=== PATIENT | female | born 1985 | race Two or more races ===

== ENCOUNTER 2016-09-09 08:27 | Observation (INO) | payer MEDICAID ==
[~2016-09-09] VITALS: Ht 154.9 cm; Wt 73.9 kg
[~2016-09-09 08:27] MED LIST: XANEX
[2016-09-09] MEDS ORDERED: ONDANSETRON ODT 4 MG TAB PO ONE ×2 (09:00→13:30)
[2016-09-09] MEDS ORDERED: SUMAtriptan SUCCINATE 6 MG/0.5 ML VL SC ONE (09:00)
[2016-09-09] MEDS ORDERED: SODIUM CHLORIDE 0.9% 1,000 ML IV ONE (09:17)
[2016-09-09 10:30] LABS: INR 0.98 (0.9-1.15); Prothrombin Time 10.1 sec (9.37-12.3)
[2016-09-09] MEDS ORDERED: ONDANSETRON HCL 4 MG/2 ML VIAL IV ONE ×2 (10:30→13:30)
[2016-09-09 10:32] LABS: Albumin 4.8 g/dL (3.4-5.0); BUN/Creatinine Ratio 15.9; Bilirubin, Total 0.7 mg/dL (0.2-1.0); Calcium 9.7 mg/dL (8.5-10.1); Potassium 3.5 mmol/L (3.5-5.1); Total Protein 9.2 g/dL (6.4-8.2)
[2016-09-09 10:42] LABS: Basophils # (auto) 0 uL; Basophils % (auto) 0.1 % (0.0-2.0); DEFINITIVE VIEW TRANSMISSION; Eosinophils # (auto) 0 uL; Hematocrit 35.7 % (36.0-46.0); Hemoglobin 12.3 g/dL (12.2-16.2); Lymphocytes # (auto) 1.3 uL; Lymphocytes % (auto) 6.3 % (10.0-50.0); Mean Corpuscular Hemoglobin 25.4 pg (28.0-32.0); Mean Corpuscular Hgb Conc. 34.4 g/dL (32.0-36.0); Mean Corpuscular Volume 73.9 fL (80.0-100.0); Mean Platelet Volume 8.4 fL (7.4-10.4); Monocytes # (auto) 0.9 uL; Monocytes % (auto) 4.3 % (0.0-12.0); Neutrophils # (auto) 18.1 uL; Neutrophils % (auto) 89.3 % (37.0-80.0); Platelet Count (auto) 417 10^3/uL (140-450); Red Cell Distribution Width 17.9 % (11.6-16.0); White Blood Cell 20.3 10^3/uL (4.4-10.8)
[2016-09-09 11:45] LABS: Urine Bilirubin Negative (Negative); Urine Color Yellow (Yellow); Urine Glucose Normal (Normal); Urine Mucus FEW (None Seen); Urine Nitrite Negative (Negative); Urine RBC 36 /hpf (0 - 4); Urine Squamous Epithelial Cell FEW /hpf (<5); Urine Urobilinogen Normal (Negative)
[2016-09-09 11:46] LABS: Urine Blood 2+ /uL (Negative); Urine Ketone 4+ (Negative)
[2016-09-09 12:33] VITALS: BP 130/65
== END 2016-09-09 13:28 | disposition home or self-care (01) | DRG 463 ==
LOC: EDBD 08:27 → ER 08:32 → OVERFLOW 09:20 → ER 11:05
PROVIDERS: ADMIT Emergency Medicine; ATTEND Emergency Medicine
DX: N39.0 Urinary tract infection, site not specified (principal); R11.10 Vomiting, unspecified; R51 Headache; Z79.899 Other long term (current) drug therapy; Z90.49 Acquired absence of other specified parts of digestive tract
CPT/HCPCS: 36415; 71010; 80053; 81001; 81025; 82962; 85025; 85610; 85730; 93005; 96361; 96372; 96374; G0378; G0434; J2405